=== PATIENT | female | born 2000 | race Caucasian/White ===

== ENCOUNTER 2024-04-26 09:34 | Emergency (ER) | payer SELFPAY ==
--- NOTE | 2024-04-26 11:03 | ER ---
Nurse's Notes [facility] Name: Mary Lou Cooney Age: 23 yrs Sex: Female : 2000 Arrival Date: 04/26/2024 Time: 09:34 Bed IW2 Private MD: Diagnosis: Presentation: 04/26 10:24 Chief complaint: Patient states: Patient reports "It's probably because I drank a lot jl7 last night and I don't have a gallbladder." EMS states: Toned out for vomiting, 20 right AC, Zofran given in route. Coronavirus screen: Client presents with at least one sign or symptom that may indicate coronavirus-19. Ebola Screen: No symptoms or risks identified at this time. Initial Sepsis Screen: Does the patient meet any 2 criteria? No. Patient's initial sepsis screen is negative. Does the patient have a suspected source of infection? No. Patient's initial sepsis screen is negative. Risk Assessment: Do you want to hurt yourself or someone else? Patient reports no desire to harm self or others. Onset of symptoms was April 26, 2024 at 03:00. 10:24 Method Of Arrival: EMS: [facility] jl7 10:24 Acuity: JORGE A 3 jl7 Triage Assessment: 10:26 General: Appears in no apparent distress. uncomfortable, ill, Behavior is calm, jl7 cooperative. Pain: Complains of pain in abdomen Pain currently is 10 out of 10 on a pain scale. GI: Reports nausea, vomiting. 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 4 in. ; Pain 10; 10:24 Body Mass Index 22.31 (58.97 kg, 162.56 cm) jl7 10:24 Pain Scale: Adult jl7 ED Course: 09:37 Patient arrived in ED. im 10:26 Triage completed. jl7 10:26 Arm band placed on right wrist. Patient placed in waiting room, Patient notified of jl7 wait time. 10:35 Daryl Ramires MD is Attending Physician. ec2 11:01 Patient's name was called from ER lobby. No response. Unable to locate patient. Will kb3 disposition as left without being seen by a provider. Administered Medications: 11:00 CANCELLED (Patient Eloped): ns 0.9% 500 ml 500 ml IV at 1 bolus once; to be given as a kb3 bolus over 30 minutes 11:01 CANCELLED (Patient Eloped): ondansetron 4 mg IVP once; over 2 minutes kb3 Outcome: 11:02 Eloped from waiting room, before seeing physician Time discovered patient gone: kb3 April 26, 2024 at 11:00 11:03 Patient left the ED. kb3 Signatures: Moses Jean RN RN jl7 Kaelyn Gross RN RN kb3 Maryjo Kramer Daryl Ramires MD MD ec2
[2024-04-26 11:08] VITALS: BP 122/82; TEMP 97.4; O2SAT 100
== END 2024-04-26 11:03 | disposition left against medical advice (07) ==
LOC: ER 09:34
DX: Z53.21 Procedure and treatment not carried out due to patient leaving prior to being seen by health care provider (principal)
CPT/HCPCS: 87804; 99282